=== PATIENT | female | born 2000 | race American Indian/Alaskan Native ===

== ENCOUNTER 2020-07-23 18:00 | Outpatient (CLI) | payer BC, MEDICARE ==
[2020-07-23 19:39] VITALS: BP 117/71
--- NOTE | 2020-07-23 22:06 | Vascular Lab Report ---
DUPLEX DOPPLER LOWER EXTREMITY VEINS, LEFT INDICATION: pain and numbness down front of left leg. TECHNIQUE: Duplex doppler imaging was performed through the veins of the left lower extremity using venous compr ession and other maneuvers. COMPARISON: None available. FINDINGS: Common Femoral vein: Negative. Superficial Femoral vein: Negative. Popliteal vein: Negative. Calf veins: Negative. Additional findings: None. IMPRESSION: 1. No sonographic evidence for DVT in the left lower extremity. Signer Name: Adrián Henry MD Signed: 07/23/2020 10:02 PM Workstation Name: [id number]
== END 2020-07-23 22:02 | disposition home or self-care (01) ==
LOC: TRG 18:00 → APU 18:34 → TRG 22:02
PROVIDERS: ATTEND Obstetrics & Gynecology
DX: O26.892 Other specified pregnancy related conditions, second trimester (principal); R22.0 Localized swelling, mass and lump, head; Z3A.25 25 weeks gestation of pregnancy
CPT/HCPCS: 59025